=== PATIENT | male | born 1950 | race Caucasian/White ===

== ENCOUNTER 2025-03-19 14:56 | Outpatient (CLI) | payer OTHER, SELFPAY | END 2025-03-19 14:57 | disposition home or self-care (01) | PROVIDERS: Visit Provider Family Medicine | DX: E78.00 Pure hypercholesterolemia, unspecified (principal); N40.0 Benign prostatic hyperplasia without lower urinary tract symptoms; N52.9 Male erectile dysfunction, unspecified; Z86.39 Personal history of other endocrine, nutritional and metabolic disease; Z12.5 Encounter for screening for malignant neoplasm of prostate | CPT/HCPCS: 80053; 80061; 84443; G0103 ==